=== PATIENT | male | born 1950 | race African-American/Black ===

== ENCOUNTER 2019-06-23 17:11 | Emergency (ER) | payer OTHER ==
[~2019-06-23] VITALS: Ht 172.7 cm; Wt 54.1 kg
[2019-06-23 17:52] LABS: BILIRUBIN,URINE NEGATIVE (NEG); CLARITY,URINE CLEAR; COLOR,URINE YELLOW; NITRITE,URINE NEGATIVE (NEG); PROTEIN,URINE NEGATIVE (NEG-TRACE); UROBILINOGEN,URINE 0.2 mg/dL (0.2 mg/dL)
[2019-06-23 17:56] LABS: BASO % 1 % (0-3); EOS % 1 % (0-3); HEMATOCRIT 39.9 % (39.0-53.0); HEMOGLOBIN 12.6 g/dL (13.0-17.5); LYMPH # 1.3 x10^3/uL (1.0-4.8); LYMPH % 34 % (24-48); MEAN CORPUSCULAR HEMOGLOBIN 26 pg (25-35); MEAN CORPUSCULAR HGB CONC 32 g/dL (31-37); MEAN CORPUSCULAR VOLUME 82 fL (79-100); MONO # 0.3 x10^3/uL (0.0-1.1); MONO % 9 % (0-9); NEUT # 2.2 x10^3/uL (1.8-7.7); NEUT % 56 % (31-73); PLATELET COUNT 240 x10^3/uL (140-400); RED BLOOD COUNT 4.89 x10^6/uL (4.30-5.70); RED CELL DISTRIBUTION WIDTH 17.4 % (11.5-14.5)
[2019-06-23 17:57] LABS: BACTERIA,URINE 0 /HPF (0-FEW); RBC,URINE 0 /HPF (0-2); WBC,URINE 0 /HPF (0-4)
[2019-06-23 17:58] LABS: BARBITURATES NEG (NEG); BENZODIAZEPINES NEG (NEG); CANNABINOIDS NEG (NEG); COCAINE NEG (NEG); METHADONE NEG (NEG); OPIATES NEG (NEG); PHENCYCLIDINE NEG (NEG)
[2019-06-23 18:02] LABS: CREATININE 0.8 mg/dL (0.7-1.3); GFR 116.3; POTASSIUM 3.3 mmol/L (3.5-5.1)
[2019-06-23 18:04] LABS: AMPHETAMINE/METHAMPHETAMINE NEG (NEG)
[2019-06-23 18:08] LABS: ALBUMIN 3.7 g/dL (3.4-5.0); ALBUMIN/GLOBULIN RATIO 0.8 (1.0-1.7); TOTAL BILIRUBIN 0.2 mg/dL (0.2-1.0); TOTAL PROTEIN 8.1 g/dL (6.4-8.2)
[2019-06-23] MEDS ORDERED: MULTIVIT INFUSN,ADULT 4,VIT K 10 ML, THIAMINE INJ 100 MG, FOLIC ACID INJ 1 MG in IV NOR... IV ONE (18:15)
[2019-06-23 23:41] VITALS: BP 152/87
--- NOTE | 2019-06-23 23:55 | PHYS DOC ---
Past Medical History Past Medical History: Diabetes-Type II, Hypertension (YODIT REED APRN) Past Surgical History: Other Additional Past Surgical Histo: unknown (YODIT REED APRN) Smoking Status: Unknown if ever smoked Alcohol Use: Heavy Drug Use: None (YODIT REED APRN) Attending Signature I have participated in the care of this patient and I have reviewed and agree with all pertinent clinical information above including history, exam, and recommendations. (CLIFFORD PINON MD) Adult General Chief Complaint Chief Complaint: ALCOHOL INTOXICATION HPI HPI Patient is a 68 year old AA male who presents to the emergency department today via EMS with reports of alcohol intoxication. EMS reports that the patient was at [facility] when he urinated himself and an ambulance was called. Patient refuses to answer any questions he denies any pain or complaints at this time, limited history of present illness due the patient's intoxicated status. (YODIT REED APRN) Review of Systems Review of Systems All other ROS is negative unless otherwise noted in HPI. (YODIT REED APRN) Current Medications Current Medications Current Medications Medications (Trade) Dose Ordered Sig/Dane Start Time Stop Time Status Last Admin Dose Admin Multivitamins 10 ml/Thiamine HCl 100 mg/Folic Acid 1 mg/Sodium Chloride 1,011.2 ml @ 1,000.088 mls/hr 1X ONCE 06/23/19 18:15 06/23/19 19:15 DC 06/23/19 18:57 1,000.088 MLS/HR (CLIFFORD PINON MD) Allergies Allergies Allergies Coded Allergies Type Severity Reaction Last Updated Verified No Known Drug Allergies 10/28/18 No (CLIFFORD PINON MD) Physical Exam Physical Exam See Above Constitutional: Well developed, well nourished, no acute distress, intoxicated appearance, strong odor of alcohol and urine HENT: Normocephalic, atraumatic, bilateral external ears normal, nose normal. [] Eyes: PERRLA, EOMI, conjunctiva normal, no discharge. [] Neck: Normal range of motion, no stridor. [] Cardiovascular:Heart rate regular rhythm Lungs & Thorax: Respirations even and unlabored, no retractions, no respiratory distress Skin: Warm, dry, no erythema, no rash. Extremities: No cyanosis, ROM intact Neurologic: Alert and oriented X 3, no focal deficits noted. [] Psychologic: Affect agitated, judgement impaired, mood intoxicated (YODIT REED APRN) Current Patient Data Vital Signs Vital Signs Date Time Temp Pulse Resp B/P (MAP) Pulse Ox O2 Delivery O2 Flow Rate FiO2 06/23/19 23:41 86 152/87 (108) 97 Room Air 06/23/19 17:11 98.3 18 98.3 (CLIFFORD PINON MD) Lab Values Laboratory Tests Test 06/23/19 17:13 06/23/19 17:48 Urine Collection Type Unknown Urine Color Yellow Urine Clarity Clear Urine pH 6.0 Urine Specific [place] <=1.005 Urine Protein Negative mg/dL (NEG-TRACE) Urine Glucose (UA) Negative mg/dL (NEG) Urine Ketones (Stick) Negative mg/dL (NEG) Urine Blood Negative (NEG) Urine Nitrite Negative (NEG) Urine Bilirubin Negative (NEG) Urine Urobilinogen Dipstick 0.2 mg/dL (0.2 mg/dL) Urine Leukocyte Esterase Negative (NEG) Urine RBC 0 /HPF (0-2) Urine WBC 0 /HPF (0-4) Urine Bacteria 0 /HPF (0-FEW) Urine Opiates Screen Neg (NEG) Urine Methadone Screen Neg (NEG) Urine Barbiturates Neg (NEG) Urine Phencyclidine Screen Neg (NEG) Urine Amphetamine/Methamphetamine Neg (NEG) Urine Benzodiazepines Screen Neg (NEG) Urine Cocaine Screen Neg (NEG) Urine Cannabinoids Screen Neg (NEG) Urine Ethyl Alcohol Pos (NEG) White Blood Count 4.0 x10^3/uL (4.0-11.0) Red Blood Count 4.89 x10^6/uL (4.30-5.70) Hemoglobin 12.6 g/dL (13.0-17.5) L Hematocrit 39.9 % (39.0-53.0) Mean Corpuscular Volume 82 fL (79-100) Mean Corpuscular Hemoglobin 26 pg (25-35) Mean Corpuscular Hemoglobin Concent 32 g/dL (31-37) Red Cell Distribution Width 17.4 % (11.5-14.5) H Platelet Count 240 x10^3/uL (140-400) Neutrophils (%) (Auto) 56 % (31-73) Lymphocytes (%) (Auto) 34 % (24-48) Monocytes (%) (Auto) 9 % (0-9) Eosinophils (%) (Auto) 1 % (0-3) Basophils (%) (Auto) 1 % (0-3) Neutrophils # (Auto) 2.2 x10^3/uL (1.8-7.7) Lymphocytes # (Auto) 1.3 x10^3/uL (1.0-4.8) Monocytes # (Auto) 0.3 x10^3/uL (0.0-1.1) Eosinophils # (Auto) 0.0 x10^3/uL (0.0-0.7) Basophils # (Auto) 0.0 x10^3/uL (0.0-0.2) Sodium Level 140 mmol/L (136-145) Potassium Level 3.3 mmol/L (3.5-5.1) L Chloride Level 102 mmol/L (98-107) Carbon Dioxide Level 24 mmol/L (21-32) Anion Gap 14 (6-14) Blood Urea Nitrogen 8 mg/dL (8-26) Creatinine 0.8 mg/dL (0.7-1.3) Estimated GFR (Cockcroft-Gault) 116.3 BUN/Creatinine Ratio 10 (6-20) Glucose Level 88 mg/dL (70-99) Calcium Level 9.0 mg/dL (8.5-10.1) Total Bilirubin 0.2 mg/dL (0.2-1.0) Aspartate Amino Transferase (AST) 27 U/L (15-37) Alanine Aminotransferase (ALT) 17 U/L (16-63) Alkaline Phosphatase 100 U/L (46-116) Total Protein 8.1 g/dL (6.4-8.2) Albumin 3.7 g/dL (3.4-5.0) Albumin/Globulin Ratio 0.8 (1.0-1.7) L Lipase 256 U/L (73-393) Ethyl Alcohol Level 277 mg/dL (0-10) H Laboratory Tests 06/23/19 17:48 Laboratory Tests 06/23/19 17:48 (CLIFFORD PINON MD) EKG EKG [] (YODIT REED APRN) Radiology/Procedures Radiology/Procedures [] (YODIT REED APRN) Course & Med Decision Making Course & Med Decision Making Pertinent Labs and Imaging studies reviewed. (See chart for details) Patient is a 68-year-old AA male who was sent to the emergency department after being found in [facility] incontinent of urine and intoxicated in public. CBC is unremarkable, CMP revealed a potassium of 3.3, otherwise unremarkable; UDS is positive for urinary for alcohol otherwise negative; alcohol level is 277; UA is unremarkable. The patient was given a banana bag IV while in the emergency department. After sleeping for several hours patient was able to ambulate unassisted with a steady gait and was clinically sober. Patient was able to provide an addressed to the nurse and a cab voucher was provided for the patient to go home. [] (YODIT REED APRN) Dragon Disclaimer Dragon Disclaimer This electronic medical record was generated, in whole or in part, using a voice recognition dictation system. (YODIT REED APRN) Departure Departure Impression: Primary Impression: Alcohol intoxication Disposition: HOME, SELF-CARE Condition: STABLE Referrals: NO PCP (PCP) Patient Instructions: Alcohol Intoxication, [id number] Additional Instructions: STOP DRINKING ALCOHOL. Follow up with your primary care doctor as needed. We have provided a local resource list if you decide that you would like to receive help for alcohol abuse. Scripts No Active Prescriptions or Reported Meds Problem Qualifiers Primary Impression: Alcohol intoxication Complication of substance-induced condition: uncomplicated Qualified Codes: F10.920 - Alcohol use, unspecified with intoxication, uncomplicated YODIT REED APRN Jun 23, 2019 23:55 CLIFFORD PINON MD Jun 24, 2019 01:48
== END 2019-06-24 00:09 | disposition home or self-care (01) ==
LOC: ER 17:11
DX: F10.229 Alcohol dependence with intoxication, unspecified (principal); E11.9 Type 2 diabetes mellitus without complications; I10 Essential (primary) hypertension; Y90.8 Blood alcohol level of 240 mg/100 ml or more
CPT/HCPCS: 36415; 80053; 80307; 81001; 83690; 85025; 96365; 96366; 99283; G0480; J7030

== ENCOUNTER 2019-10-05 15:49 | Emergency (ER) | payer SELFPAY ==
[~2019-10-05] VITALS: Ht 177.8 cm; Wt 77.2 kg
[~2019-10-05 15:49] MED LIST: AMLO5TAB10 PO
[2019-10-05 15:51] VITALS: BP 138/86
[2019-10-05] MEDS ORDERED: FAMOTIDINE 20 MG TABLET. PO ONE (16:00)
--- NOTE | 2019-10-05 16:24 | PHYS DOC ---
Past Medical History Past Medical History: Diabetes-Type II, Hypertension Past Surgical History: Other Additional Past Surgical Histo: unknown Smoking Status: Former Smoker Alcohol Use: Heavy Drug Use: None General Adult EDM: Chief Complaint: MECHANICAL FALL HPI: HPI: Patient is a 69 year old male presenting to the ER with a chief complaint of alcohol intoxication and possible fall. EMS state that patient was found on his back on the sidewalk. Patient had an empty bottle of alcohol . Currently patient complains of epigastric abdominal tenderness. Patient denies any other pain or injury. Patient denies taking blood thinners. Patient is able to move all 4 extremities. Review of Systems: Review of Systems: Constitutional: Denies fever or chills. [] Eyes: Denies change in visual acuity. [] HENT: Denies nasal congestion or sore throat. [] Respiratory: Denies cough or shortness of breath. [] Cardiovascular: Denies chest pain or edema. [] GI: Complains of epigastric abdominal tenderness : Denies dysuria. [] Neurologic: Denies headache, focal weakness or sensory changes. [] Heart Score: Risk Factors: Risk Factors: DM, Current or recent (<one month) smoker, HTN, HLP, family h istory of CAD, obesity. Risk Scores: Score 0 - 3: 2.5% MACE over next 6 weeks - Discharge Home Score 4 - 6: 20.3% MACE over next 6 weeks - Admit for Clinical Observation Score 7 - 10: 72.7% MACE over next 6 weeks - Early Invasive Strategies Current Medications: Current Medications Medications (Trade) Dose Ordered Sig/Dane Start Time Stop Time Status Last Admin Dose Admin Famotidine (Pepcid) 20 mg 1X ONCE 10/05/19 16:00 10/05/19 16:01 DC 10/05/19 15:56 20 MG Allergies: Allergies: Allergies Coded Allergies Type Severity Reaction Last Updated Verified No Known Drug Allergies 10/28/18 No Physical Exam: PE: Constitutional: Well developed, well nourished, no acute distress, non-toxic appearance. [] HENT: Normocephalic, atraumatic Eyes: PERRLA, EOMI Neck: Normal range of motion, no tenderness, supple Cardiovascular:Heart rate regular rhythm Lungs & Thorax: Bilateral breath sounds clear to auscultation [] Abdomen: Bowel sounds normal, soft, no tenderness Back: No tenderness, no CVA tenderness. [] Extremities: No tenderness, no cyanosis, no clubbing, ROM intact, no edema. [] Neurologic: Alert and oriented X 3 Current Patient Data: Vital Signs: Vital Signs Date Time Temp Pulse Resp B/P (MAP) Pulse Ox O2 Delivery O2 Flow Rate FiO2 10/05/19 15:51 98.2 84 18 138/86 (103) 96 Room Air 98.2 EKG: EKG: [] Radiology/Procedures: Radiology/Procedures: [] Impression: CT head shows no acute disease Course & Med Decision Making: Course & Med Decision Making Pertinent Imaging studies reviewed. (See chart for details) Ordered CT head and oral tablet of Pepcid. No other obvious signs of injury seen. Patient does not give reliable history. CT head negative for acute disease. Patient is sleeping comfortably in the ER. Patient will be discharged when clinically sober. Discussed results and plan of care with patient. Patient is instructed to follow up with PCP in one to 2 days. Appropriate discharge instructions given to patient to return to the ED or to seek immediate medical evaluation. Patient is instructed to return to the ED if symptoms worsen or if any concerns. Dragon Disclaimer: Dragon Disclaimer: This electronic medical record was generated, in whole or in part, using a voice recognition dictation system. Departure Departure Impression: Primary Impression: Alcohol intoxication Disposition: 01 HOME, SELF-CARE Condition: IMPROVED Referrals: NO PCP (PCP) Patient Instructions: Alcohol Intoxication Additional Instructions: Please return to the ED if symptoms worsen or if any concerns. Please follow-up with PCP in 1 to 2 days. HAILEY LOPEZ DO October 05, 2019 16:24
--- NOTE | 2019-10-05 16:42 | RAD ---
EXAM: Head CT without contrast. HISTORY: Fall. TECHNIQUE: Computed tomographic images of the head were obtained without contrast. *One or more of the following individualized dose reduction techniques were utilized for this examination: 1. Automated exposure control. 2. Adjustment of the mA and/or kV according to patient size. 3. Use of iterative reconstruction technique. COMPARISON: 04/13/2018. FINDINGS: There is no acute or subacute extra-axial or intraparenchymal hemorrhage. There is no mass effect or midline shift. There is no hydrocephalus. There is cerebral atrophy. There is extensive decreased attenuation within the cerebral white matter, likely due to chronic small vessel disease. There are suspected chronic infarcts within the right frontal and parietal lobes. There are fracture deformities of the bilateral nasal bones, of uncertain chronicity. There is mild paranasal sinus mucosal thickening and there is a left maxillary sinus mucous retention cyst. There are bilateral lev bullosa. The mastoid air cells are clear. IMPRESSION: 1. No acute intracranial finding. 2. Bilateral cerebral white matter changes, likely due to advanced small vessel disease. 3. 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 4. Cerebral volume loss. 5. Bilateral nasal bone fractures of uncertain chronicity. Electronically signed by: Amie Yu MD (10/05/2019 4:40 PM) [id number]
== END 2019-10-05 20:04 | disposition home or self-care (01) ==
LOC: ER 15:49
DX: F10.229 Alcohol dependence with intoxication, unspecified (principal); R10.13 Epigastric pain; E11.9 Type 2 diabetes mellitus without complications; I10 Essential (primary) hypertension; Z87.891 Personal history of nicotine dependence
CPT/HCPCS: 70450; 99284

== ENCOUNTER 2020-06-03 18:47 | Emergency (ER) | payer SELFPAY ==
[~2020-06-03] VITALS: Ht 165.1 cm; Wt 54.5 kg
[~2020-06-03 18:47] MED LIST changes: +AMLO-186 PO; -AMLO5TAB10 PO
[2020-06-03 18:50] VITALS: BP 166/97
[2020-06-03] MEDS ORDERED: IBUPROFEN 400 MG TABLET. PO ONE (19:15)
--- NOTE | 2020-06-03 20:40 | PHYS DOC ---
Past Medical History Past Medical History: Diabetes-Type II, Hypertension Past Surgical History: Other Additional Past Surgical Histo: unknown Smoking Status: Former Smoker Alcohol Use: Heavy Drug Use: None Adult General Chief Complaint Chief Complaint: ALCOHOL INTOXICATION HPI HPI Patient is a 69 year old male with a known past medical history of alcohol abuse and dependence now presents emergency department complaining of back pain. Patient initially stated to nursing staff that he was having right lower back pain. However when I went to evaluate him he states that he does not want to be evaluated and simply wants to sleep. Patient is a known history of alcohol use and states that he drank a little bit tonight but does not state how much. Patient refusing to provide any further history. Review of Systems Review of Systems Constitutional: Denies fever or chills [] Eyes: Denies change in visual acuity, redness, or eye pain [] HENT: Denies nasal congestion or sore throat [] Respiratory: Denies cough or shortness of breath [] Cardiovascular: No additional information not addressed in HPI [] GI: Denies abdominal pain, nausea, vomiting, bloody stools or diarrhea [] : Denies dysuria or hematuria [] Musculoskeletal: Denies back pain or joint pain [] Integument: Denies rash or skin lesions [] Neurologic: Denies headache, focal weakness or sensory changes [] Endocrine: Denies polyuria or polydipsia [] All other systems were reviewed and found to be within normal limits, except as documented in this note. Current Medications Current Medications Current Medications Medications (Trade) Dose Ordered Sig/Dane Start Time Stop Time Status Last Admin Dose Admin Ibuprofen (Motrin) 800 mg 1X ONCE 06/03/20 19:15 06/03/20 19:16 DC Allergies Allergies Allergies Coded Allergies Type Severity Reaction Last Updated Verified No Known Drug Allergies 10/28/18 No Physical Exam Physical Exam Constitutional: Well developed, well nourished, no acute distress, non-toxic appearance. [] HENT: Normocephalic, atraumatic, bilateral external ears normal, oropharynx moist, no oral exudates, nose normal. [] Eyes: PERRLA, EOMI, conjunctiva normal, no discharge. [] Neck: Normal range of motion, no tenderness, supple, no stridor. [] Cardiovascular:Heart rate regular rhythm, no murmur [] Lungs & Thorax: Bilateral breath sounds clear to auscultation [] Abdomen: Bowel sounds normal, soft, no tenderness, no masses, no pulsatile masses. [] Skin: Warm, dry, no erythema, no rash. [] Back: No tenderness, no CVA tenderness. [] Extremities: No tenderness, no cyanosis, no clubbing, ROM intact, no edema. [] Neurologic: Alert and oriented X 3, normal motor function, normal sensory function, no focal deficits noted. [] Psychologic: Affect normal, judgement normal, mood normal. [] EKG EKG [] Radiology/Procedures Radiology/Procedures [] Course & Med Decision Making Course & Med Decision Making Pertinent Labs and Imaging studies reviewed. (See chart for details) 69-year-old male initially presented complaining of back pain but refusing any work-up, physical exam or further evaluation. Patient appears alert and oriented x4, ambulates at his baseline and appears to have decision-making cap acity. Patient refused any further work-up or blood work. At this time will discharge home. We have provided the patient with information regarding safe place to stay and sleep as the patient is homeless Dragon Disclaimer Dragon Disclaimer This electronic medical record was generated, in whole or in part, using a voice recognition dictation system. Departure Departure Impression: Primary Impression: ETOH abuse Disposition: 01 DC HOME SELF CARE/HOMELESS Referrals: NO PCP (PCP) Patient Instructions: Alcohol Intoxication, Alcohol Problems Additional Instructions: EMERGENCY DEPARTMENT GENERAL DISCHARGE INSTRUCTIONS Thank you for coming to [facility] Emergency Department (ED) [facility] and trusting us with you care. We trust that you had a positive experience in our Emergency Department. If you wish to speak to the department management, you may call the Director at [phone]. YOUR FOLLOW UP INSTRUCTIONS ARE FOLLOWS: 1. Do you have a private Doctor? If you do not have a private doctor, please ask for a resource list of physicians or clinics that may be able to assist you with follow up care. 2. The Emergency Physicain has interpreted your x-rays. The X-Ray specialist will also review them. If there is a change in the findings, you will be notified in 48 hours when at all possible. 3. A lab test or culture has been done, your results will be reviewed and you will be notified if you need a change in treatment. ADDITIONAL INSTRUCTIONS AND INFORMATION: 1. Your care today has been supervised by a physician who is specially trained in emergency care. Many problems require more than one evaluation for a complete diagnosis and treatment. We recommend that you schedule your follow up appointment as recommended to ensure complete treatment of you illness or injury. If you are unable to obtain follow up care and continue to have a problem, or if your condition worsens, we recommend that you return to the ED. 2. We are not able to safely determine your condition over the phone nor are we able to give sound medical advice over the phone. For these safety reasons, if you call for medical advice we will ask you to come to the ED for further evaluation. 3. If you have any questions regarding these discharge instructions please call the ED at [phone]. SAFETY INFORMATION: In the interest of safety, wellness, and injury prevention; we encourage you to wear your sealbelt, if you smoke; quite smoking, and we encourage family to use a protective helmet for bicycling and other sporting events that present an increased risk for head injury. IF YOUR SYMPTOMS WORSEN OR NEW SYMPTOMS DEVELOP, OR YOU HAVE CONCERNS ABOUT YOUR CONDITION; OR IF YOUR CONDITION WORSENS WHILE YOU ARE WAITING FOR YOUR FOLLOW UP APPOINTMENT; EITHER CONTACT YOUR PRIMARY CARE DOCTOR, THE PHYSICIAN WHOSE NAME AND NUMBER YOU WERE GIVEN, OR RETURN TO THE ED IMMEDIATELY. CHIQUITA DUMONT MD Jun 03, 2020 20:40
== END 2020-06-03 20:50 | disposition home or self-care (01) ==
LOC: ER 18:47
DX: F10.20 Alcohol dependence, uncomplicated (principal); Y90.9 Presence of alcohol in blood, level not specified; M54.5 Low back pain; E11.9 Type 2 diabetes mellitus without complications; I10 Essential (primary) hypertension; Z87.891 Personal history of nicotine dependence
CPT/HCPCS: 99284